=== PATIENT | female | born 1995 | race Caucasian/White ===

== ENCOUNTER 2016-09-23 17:20 | Observation (INO) | payer MEDICAID ==
[~2016-09-23 17:20] MED LIST: NITR-48 PO
== END 2016-09-23 18:27 | disposition home or self-care (01) | DRG 566 ==
LOC: LDRP 17:20
PROVIDERS: ADMIT Obstetrics & Gynecology; ATTEND Obstetrics & Gynecology
DX: O26.892 Other specified pregnancy related conditions, second trimester (principal); N89.8 Other specified noninflammatory disorders of vagina; Z3A.21 21 weeks gestation of pregnancy; Z87.891 Personal history of nicotine dependence
CPT/HCPCS: 59025; 81002; G0378